=== PATIENT | female | born 1995 | race Two or more races ===

== ENCOUNTER 2019-05-05 01:23 | Emergency (ER) | payer SELFPAY ==
[~2019-05-05] VITALS: Ht 162.6 cm; Wt 76.7 kg
[2019-05-05] MEDS ORDERED: HYDROcodone-ACET 10/325MG TAB PO ONE (03:15)
[2019-05-05] MEDS ORDERED: BACLOFEN 10 MG TAB PO ONE (03:15)
[2019-05-05 03:40] VITALS: BP 124/83
== END 2019-05-05 04:25 | disposition left against medical advice (07) ==
LOC: ER 01:23 → EDBD 01:23 → ER 04:23
DX: M79.631 Pain in right forearm (principal); V43.52XA Car driver injured in collision with other type car in traffic accident, initial encounter; Y93.89 Activity, other specified; Y99.8 Other external cause status; Y92.410 Unspecified street and highway as the place of occurrence of the external cause
CPT/HCPCS: 73090